=== PATIENT | female | born 1960 | race American Indian/Alaskan Native ===

== ENCOUNTER 2016-07-08 09:23 | Outpatient (CLI) | payer BC ==
--- NOTE | 2016-07-08 12:55 | Mammography Report ---
Screening mammogram: Routine imaging demonstrates asymmetric fibroglandular tissue in the superolateral anterior right breast. No focal mass nor architectural distortion. In the right MLO view posteriorly there is incompletely included collection of pleomorphic appearing calcifications with a linear distribution. These are not included in the CC projection. The remainder the breast pattern bilaterally is mostly fatty replaced and unremarkable. CAD used. Impression: Indeterminate right breast calcifications. Recommendation: The patient's prior exams are being requested for comparison. If a comparison report is not received within 3 weeks additional imaging of the right breast to include magnification views is recommended. BI-RADS CATEGORY: 0 = Needs additional imaging evaluation ACR BI-RADS MAMMOGRAPHIC CODES: 0 = Needs additional imaging evaluation; 1 = Negative; 2 = Benign; 3 = Probably benign; 4 = Suspicious; 5 = Malignant; 6 = Known biopsy-proven malignancy COMMENT: 1. Dense breast tissue, i.e., adenosis, fibrocystic changes, etc., may obscure an underlying neoplasm. 2. Approximately 10% of cancers are not detected with mammography. 3. A negative mammography report should not delay biopsy if a clinically suspicious mass is present. The
== END 2016-07-08 09:24 | disposition home or self-care (01) ==
LOC: SPVWC 09:23
PROVIDERS: ATTEND Internal Medicine
DX: Z12.31 Encounter for screening mammogram for malignant neoplasm of breast (principal)
CPT/HCPCS: 77067; G0202

== ENCOUNTER 2017-07-09 08:34 | Outpatient (CLI) | payer OTHER ==
--- NOTE | 2017-07-09 15:18 | Mammography Report ---
BILATERAL DIGITAL SCREENING MAMMOGRAM with CAD: 07/09/17 08:34:00 CLINICAL: Routine screening. COMPARISON:07/08/16 FINDINGS: The breasts are heterogeneously dense, which may obscure small masses. A group of right posterior calcifications requires additional imaging.The calcifications are partially imaged when compared to the last exam and the patient did not return for a complete workup after the last screening mammogram. No associated mass or architectural distortion. The left breast is negative. IMPRESSION: Right calcifications requiring further workup. BI-RADS CATEGORY: 0 -- Additional Imaging Evaluation Required RECOMMENDATION: Recall for right CC, exaggerated CC and repeat MLO views to include more posterior breast tissue. ACR BI-RADS MAMMOGRAPHIC CODES: 0 = Needs additional imaging evaluation; 1 = Negative; 2 = Benign; 3 = Probably benign; 4 = Suspicious; 5 = Malignant; 6 = Known biopsy-proven malignancy COMMENT: 1. Dense breast tissue, i.e., adenosis, fibrocystic changes, etc., may obscure an underlying neoplasm. 2. Approximately 10% of cancers are not detected with mammography. 3. A negative mammography report should not delay biopsy if a clinically suspicious mass is present. COMMENT: Patient follow-up letters are generated via our [employer] application.
== END 2017-07-09 08:35 | disposition home or self-care (01) ==
LOC: SPVWC 08:34
PROVIDERS: ATTEND Internal Medicine
DX: Z12.31 Encounter for screening mammogram for malignant neoplasm of breast (principal)
CPT/HCPCS: 77067

== ENCOUNTER 2018-03-27 06:48 | Day surgery (SDC) | payer OTHER ==
[2018-03-27] MEDS ORDERED: ECOTRIN PO ONE (08:00)
[2018-03-27] MEDS ORDERED: NACL 0.9% 500 ML 500 ML IV SCH (08:00)
[2018-03-27] MEDS ORDERED: HEPARIN/NS 5000 UNIT/500ML(CATH LAB) 1,000 ML IR ONE (08:21)
[2018-03-27] MEDS: NITROGLYCERIN SYRINGE 3 ML ONE ×2 (08:39→09:00)
[2018-03-27] MEDS: VERSED ONE ×2 (08:39→08:56)
[2018-03-27] MEDS: SUBLIMAZE ONE ×2 (08:39→08:56)
[2018-03-27] MEDS: CALAN ONE ×2 (08:40→09:00)
[2018-03-27] MEDS: XYLOCAINE 2% INFILTRATI ONE ×3 (08:40→09:03)
[2018-03-27] MEDS: HEPARIN 10,000 UNITS/10 ML ONE ×2 (08:46→09:00)
[2018-03-27] MEDS ORDERED: XYLOCAINE 2% INFILTRATI ONE (09:06)
--- NOTE | 2018-03-27 10:07 | Cardiac Catherization Report ---
CARDIAC CATHETERIZATION REFERRING PHYSICIAN: Mejia Downs MD PROCEDURE: Left heart catheterization. INDICATION FOR PROCEDURE: The patient is a pleasant 57-year-old female with recurrent chest pain, abnormal stress test, hypertension, referred for left heart catheterization by Dr. Downs. Risks, benefits, alternatives discussed at length prior to obtaining informed consent. PROCEDURE IN DETAIL: The patient was brought to catheterization lab in a postabsorptive state, prepped and draped in sterile fashion. Pola's test in right hand was normal. A 2 mL of 2% lidocaine used to anesthetize the right wrist. A standard 6-Chinese hydrophilic sheath used to cannulate the right radial artery via modified Seldinger technique. Due to some radial spasm, we changed to a groin approach. A 5-Chinese sheath placed in the right common femoral artery via modified Seldinger technique. All exchanges performed to exchange a J-tip guidewire. JL3.5 catheter used to engage the left main. No dampening or ventricularization. Cineangiography performed in all projections. JR4 catheter was used to cross the aortic valve under fluoroscopic guidance. Left ventriculography performed in [address] projections via hand injections, catheter flushed. Manual pullback performed with continuous pressure monitoring. Catheter used to engage the right coronary. No dampening or ventricularization. Cineangiography performed in all projections. Due to recurrent chest pain, hypertension, multiple blood pressure medications, we performed a root aortogram with a pigtail catheter and power injector in the [facility] projection. Next, catheter was removed from the body of wire. Both sheaths removed. Manual pressure used to achieve hemostasis. No immediate complications. I directly supervised the administration of moderate sedation with fentanyl and Versed from 08:56 to 09:20 a.m. DATA: Aortic pressure is 130/70, LV pressure is 130, LVP of 10 mmHg. Left ventriculography revealed normal systolic performance with estimated ejection fraction of 55% to 60%. No evidence of aortic stenosis. The patient remained in sinus rhythm throughout the procedure. CORONARY ANATOMY: Right dominant system. Right coronary is a moderate sized vessel, courses AV groove, distally bifurcates in the posterior descending and posterolateral branches. Scattered luminal irregularities, but no significant disease, BRIGITTE 3 flow. Left main without significant disease, bifurcates in left anterior descending and left circumflex. Left circumflex, moderate sized vessel, courses AV groove, gives off an OM trunk. No significant disease. LAD is a moderate sized vessel, courses anterior interventricular groove, wraps around the apex, scattered luminal irregularities, but no significant disease, BRIGITTE 3 flow throughout. Root aortography reveals no evidence of dissection or penetrating aortic ulcer, normal caliber, no evidence of aortic insufficiency, normal great vessel anatomy. CONCLUSIONS: 1. No angiographic evidence of significant epicardial coronary disease in this right dominant system. 2. Normal left ventricular systolic performance with estimated ejection fraction of 55% to 60%. 3. No evidence of aortic stenosis. 4. Root aortogram without evidence of dissection/penetrating aortic ulcer/____. The patient is clinically stable. Continue blood pressure control, primary and secondary prevention measures. No immediate complications. Standard radial and groin care. Follow up with Dr. Downs in the office. JOB# [id number] SBEun/STACY
--- NOTE | 2018-03-27 10:45 | Short Stay Summary ---
Short Stay Documentation Date of service: 03/27/18 - History H&P: obtained from office - Allergies and Medications Current Medications: Allergies No Known Allergies Allergy (Verified 03/27/18 07:05) Home Medications Medication Instructions Recorded Confirmed Last Taken Type Dapagliflozin Propanediol [Farxiga] 10 mg PO DAILY 03/27/18 03/27/18 03/26/18 History Ergocalciferol [Vitamin D2] 50,000 unit PO DAILY 03/27/18 03/27/18 03/26/18 History Exenatide Microspheres [Bydureon 2 mg SQ QWEEK 03/27/18 03/27/18 03/22/18 History Bcise] Fenofibrate 160 mg PO DAILY 03/27/18 03/27/18 03/26/18 History Gabapentin [Neurontin] 300 mg PO BID 03/27/18 03/27/18 03/26/18 History Losartan/Hydrochlorothiazide 1 each PO DAILY 03/27/18 03/27/18 03/26/18 History [Losartan-Hctz 50-12.5 mg Tab] Metformin HCl 1,000 mg PO BID 03/27/18 03/27/18 03/26/18 History Active Medications Sodium Chloride (Nacl 0.9% 500 Ml) 500 mls @ 50 mls/hr IV DIRECT ELVIRA Stop: 03/27/18 17:59 Last Admin: 03/27/18 08:04 Dose: 50 mls/hr Documented by: - Brief post op/procedure progress note Date of procedure: 03/27/18 Pre-op diagnosis: abnormal stress test, chest pain Post-op diagnosis: same Procedure: C - see dictated cath report Anesthesia: local Estimated blood loss: none Condition: stable - Disposition Condition at discharge: Good Disposition: [id number] TO HOME OR SELFCARE - Discharge Diagnoses (1) Normal coronary arteries Status: Chronic (2) HTN (hypertension) Status: Chronic Short Stay Discharge Plan Activity: advance as tolerated Diet: low salt Wound: open to air, keep clean and dry, per your surgeon's advice Follow up with: MARCI BRADY MD [Primary Care Provider] - 7 Days KENIA SKINNER MD [Staff Physician] - 7 Days
[2018-03-27 13:05] VITALS: BP 126/81
== END 2018-03-27 13:45 | disposition home or self-care (01) ==
LOC: CATHLABREC 06:48
PROVIDERS: ATTEND Internal Medicine
DX: I25.10 Atherosclerotic heart disease of native coronary artery without angina pectoris (principal); G62.9 Polyneuropathy, unspecified; I10 Essential (primary) hypertension; E78.00 Pure hypercholesterolemia, unspecified; G47.30 Sleep apnea, unspecified; Z79.899 Other long term (current) drug therapy; Z90.49 Acquired absence of other specified parts of digestive tract; Z98.891 History of uterine scar from previous surgery; Z98.890 Other specified postprocedural states
CPT/HCPCS: 82962; 93005; 93010; 93458; 99156; 99157; C1894; J1644; J2250; J3010; J7040; Q9967